=== PATIENT | male | born 1950 | race Caucasian/White ===

== ENCOUNTER 2017-07-28 11:57 | Emergency (ER) | payer MEDICARE, MEDICAID ==
[~2017-07-28] VITALS: Ht 170.2 cm; Wt 80.0 kg
[2017-07-28] MEDS ORDERED: iohexol 350MG/ML 100ml bottle IV ONE (12:08)
[2017-07-28 12:20] LABS: BASOPHILS % (AUTO) 0.6 % (0-1); EOSINOPHILS # (AUTO) 0.2 X10'3 (0-0.9); EOSINOPHILS % (AUTO) 2.6 % (0-6); HEMATOCRIT 45.2 % (42.0-52.0); HEMOGLOBIN 15.1 g/dl (14.0-17.9); LYMPHOCYTES # (AUTO) 2.1 X10'3 (1.1-4.8); LYMPHOCYTES % (AUTO) 33.2 % (21-51); MEAN CORPUSCULAR HGB CONC 33.5 % (33.0-36.5); MEAN CORPUSCULAR VOLUME 86.4 FL (78-98); MEAN PLATELET VOLUME 9.3 FL (7.4-10.4); MONOCYTES # (AUTO) 0.5 X10'3 (0-0.9); MONOCYTES % (AUTO) 8.5 % (2-12); NEUTROPHILS # (AUTO) 3.5 X10'3 (1.8-7.7); NEUTROPHILS % (AUTO) 55.1 % (42-75); PLATELET COUNT 144 X10'3 (140-440); RED BLOOD COUNT 5.23 X10'6 (4.70-6.10); RED CELL DISTRIBUTION WIDTH 13.5 % (11.5-14.5); WHITE BLOOD COUNT 6.4 X10'3 (4.5-11.0)
[2017-07-28 12:29] LABS: PARTIAL THROMBOPLASTIN TIME 23 SECONDS (22-32); PROTHROMBIN TIME 10.6 SECONDS (9.0-12.0)
[2017-07-28 12:37] LABS: ALANINE AMINOTRANSFERASE 35 U/L (12-78); ALBUMIN 4.1 G/DL (3.4-5.0); ALBUMIN/GLOBULIN RATIO 1.4 (1.1-1.5); ALKALINE PHOSPHATASE 84 IU/L (46-116); ANION GAP 11 (8-16); ASPARTATE AMINO TRANSFERASE 19 U/L (10-37); BILIRUBIN,TOTAL 1.2 MG/DL (0.1-1.0); BLOOD UREA NITROGEN 19 MG/DL (7-18); CALCIUM 8.9 MG/DL (8.5-10.1); CHLORIDE 104 MMOL/L (99-107); CREATININE 1.46 MG/DL (0.60-1.10); GLUCOSE 143 MG/DL (70-104); POTASSIUM 3.6 MMOL/L (3.5-5.1); SODIUM 141 MMOL/L (135-145); TOTAL CARBON DIOXIDE 26.5 MMOL/L (24-32); eGFR 48 ML/MIN
[2017-07-28] MEDS ORDERED: morphine 5 MG/ML injection IV ONE (12:45)
[2017-07-28] MEDS ORDERED: ondansetron/PF 4mg/2ml inj IV ONE (12:45)
[2017-07-28] MEDS ORDERED: morphine sulfate 8 MG/ML SYRINGE IV ONE (12:50)
[2017-07-28] MEDS ORDERED: HYDROcodone/acetaminophen 10/325mg tab PO ONE (13:20)
[2017-07-28] MEDS ORDERED: tetanus & diphtheria toxoid (Td) vaccine 0.5ml IMVAC ONE (13:25)
[2017-07-28] MEDS ORDERED: HYDR-565 PO (13:41)
[2017-07-28] MEDS ORDERED: TETanus/Pertussis (Acell)/Diphther VAC/PF (Tdap-Adult) 0.5ml syringe IMVAC ONE (14:00)
[2017-07-28 18:54] VITALS: BP 144/78
== END 2017-07-28 16:00 | disposition home or self-care (01) ==
LOC: ER 11:58
DX: S71.101A Unspecified open wound, right thigh, initial encounter (principal); I10 Essential (primary) hypertension; W32.0XXA Accidental handgun discharge, initial encounter; Y93.89 Activity, other specified; Y92.89 Other specified places as the place of occurrence of the external cause; Y99.8 Other external cause status
CPT/HCPCS: 36415; 73706; 80053; 82948; 85025; 85610; 85730; 86885; 86900; 86901; 90471; 90715; 96374; 96375; 99285; A6449; J2270; J2405; J7030; Q9967

== ENCOUNTER 2025-07-03 16:13 | Emergency (ER) | payer MEDICARE, MEDICAID ==
[~2025-07-03] VITALS: Ht 170.2 cm; Wt 69.5 kg
[~2025-07-03 16:13] MED LIST: ATOR20TA66 PO; NITR0.4T51 SL; NOR5T PO; PANT40TA54 PO
--- NOTE | 2025-07-03 16:36 | ELECTROCARDIOGRAPH REPORT ---
[facility] Test Date: 2025-07-03 Test Time: 16:35:24 Pat Name: TWAN ARREGUIN Department: EMERGENCY ROOM Room: Gender: M Information Delivery Analyst: SANDRA : 1950 Requested By: NADIA MORALEZ Order Number: [id number] Reading MD: Dr. DEE Beltran Measurements Intervals [place] Rate: 55 P: 9 CA: 228 QRS: 35 QRSD: 100 T: 209 QT: 448 QTc: 429 Interpretive Statements Sinus bradycardia Prolonged CA interval Probable left atrial enlargement LVH with secondary repolarization abnormality Anterior Q waves, possibly due to LVH Baseline wander in lead(s) V3 Electronically Signed On 07-04-2025 17:33:[address] DEE Beltran Please click the below link to view image of tracing.
[2025-07-03 16:58] LABS: MEAN PLATELET VOLUME 9.7 FL (7.4-10.4); RED CELL DISTRIBUTION WIDTH 13.1 % (11.5-14.5)
--- NOTE | 2025-07-03 17:02 | RADIOLOGY REPORT ---
EXAM: DI CHEST,SINGLE VIEW HISTORY: CP COMPARISON: DI CHEST,SINGLE VIEW on DOS: 05/09/25 TECHNIQUE: Portable AP view of the chest was performed. FINDINGS: No pneumothorax, consolidative infiltrates, or pulmonary edema. There is mild relative elevation of the right hemidiaphragm, stable. The heart is not enlarged. The aortic arch is calcific. There are degenerative changes and scoliosis of the thoracic spine. IMPRESSION: No acute intrathoracic process.
[2025-07-03 17:16] LABS: CREATININE 1.32 MG/DL (0.60-1.10); PRO BRAIN NATRIURETIC PEPTIDE 627 PG/ML (0-450); TOTAL CARBON DIOXIDE 30.5 MMOL/L (24-32); eCRCL 45 ML/MIN; eGFR 53 ML/MIN
--- NOTE | 2025-07-03 18:58 | Physician Documentation ---
History of Present Illness ~ Chief Complaint: Hypertension Stated Complaint: HIGH BP Time Seen by MD: 18:57 Mode of Arrival: POV HPI Patient presents to the emergency room with chief complaint of elevated blood pressures. He admits that he would not take his blood pressure medicine today. He was admitted here two months ago and started on amlodipine. He states he has had refills and has a primary care. He states he has not been taking his blood pressures at home was unsure what they has been. That has prompted today by his friend to take his blood pressure. Medication Reconciliation Allergies: Coded Allergies: No Known Allergies (Unverified , 07/03/25) Scheduled Amlodipine Besylate (Amlodipine Besylate), 10 MG PO DAILY Atorvastatin Calcium (Atorvastatin Calcium), 40 MG PO DAILY Pantoprazole Sodium (Pantoprazole Sodium), 40 MG PO BKF Scheduled PRN Nitroglycerin SL* (Nitrostat SL*), 0.4 MG SL Q5MIN PRN for chest pain Past Medical History Past Medical History: Hypertension, COPD, Hypothyroidism Past Surgical History: noncontributory Patient History: FH: heart attack Drug Use: none Lives In: Home Review of Systems ROS All review of systems negative except as per HPI Physical Exam Vital Signs: Temperature: 97.8, Source: Temporal, Heart Rate: 54, Respiratory Rate: 16, BP: 201/86, Pulse Oximetry: 100, Weight: 69.500 Oxygen Flow Rate: 0 Physical Exam General: Patient is awake, alert, oriented x4 in no acute distress and well appearing.~ Head: Normocephalic and atraumatic. Eyes: Conjunctival normal. EOMI. PERRL. ENT: Mucous membranes moist. Neck: Supple, trachea is midline. Chest: Clear to auscultation bilaterally without rales, rhonchi, or wheezes. T here is no accessory muscle use or retractions. Cardiac: RRR without murmurs, gallops, or rubs. Progress Results/Orders Results/Orders Vital Signs 07/03/25 07/03/25 07/03/25 16:27 17:12 18:05 Temp 98.7 97.8 Pulse 58 54 Resp 12 16 16 B/P (MAP) 190/81 201/86 (124) Pulse Ox 99 100 O2 Flow Rate 0 0 Laboratory Tests Test 07/03/25 16:45 07/03/25 18:36 White Blood Count 7.0 Red Blood Count 4.84 Hemoglobin 14.1 Hematocrit 41.8 L Mean Corpuscular Volume 86.5 Mean Corpuscular Hemoglobin 29.2 Mean Corpuscular Hemoglobin Concent 33.8 Red Cell Distribution Width 13.1 Platelet Count 149 Mean Platelet Volume 9.7 Neutrophils (%) (Auto) 65.5 Lymphocytes (%) (Auto) 23.8 Monocytes (%) (Auto) 8.0 Eosinophils (%) (Auto) 1.7 Basophils (%) (Auto) 1.0 Neutrophils # (Auto) 4.6 Lymphocytes # (Auto) 1.7 Monocytes # (Auto) 0.6 Eosinophils # (Auto) 0.1 Basophils # (Auto) 0.1 CBC Comment Sodium Level 143 Potassium Level 3.7 Chloride Level 108 H Carbon Dioxide Level 30.5 Anion Gap 5 L Blood Urea Nitrogen 20 H Creatinine 1.32 H Estimated GFR/1.73 m2 53 BUN/Creatinine Ratio 15.2 Glucose Level 110 H Calcium Level 8.4 L Troponin I High Sensitivity 29 31 Pro-B-Type Natriuretic Peptide 627 H Albumin 4.1 Chemistry Comments Troponin I High Sens Percent Delta 6 Troponin I Hi Sens Absolute Change 2 Medical Decision Making Additional information obtaine: old records Findings Patient presented to the emergency room with elevated blood pressures. Concern for possible hypertensive emergency therefore labs ordered which were reassuring compared to previous. He admits that he would not take his blood pressure medications today. We will give his blood pressure medication here with instructions to start blood pressure log and to follow up with his doctor. Differential Dx:Considerations: Include CHF, Include HTN, essential, Include HTN, accelerated, Include HTN, malignant, Include HTN, encephalopathy, Include m edical noncompliance, Include medication withdrawal, Include pulmonary edema, Include renal failure, Include -induced, Include other Departure Disposition: 01 HOME / SELF CARE / HOMELESS Impression: Primary Impression: Uncontrolled hypertension Condition: Stable Discharge Instructions: Hypertension, Adult Additional Instructions: Begin blood pressure log seek and bring this to your primary care doctor as you will likely need additional blood pressure medications. Referrals: NO PRIMARY CARE PROVIDER (PCP) Signature Scribe Signature: No scribe Attestation: The note accurately reflects work and decisions made by me.Jalil Wallis MD 07/03/25 19:14 JALIL WALLIS MD Jul 03, 2025 18:58
[2025-07-03 19:26] VITALS: BP 195/72; PULSE 65; RESP 16; TEMP 97.8; O2SAT 98
== END 2025-07-03 19:28 | disposition home or self-care (01) ==
LOC: ER 16:13
DX: I10 Essential (primary) hypertension (principal); E03.9 Hypothyroidism, unspecified; J44.9 Chronic obstructive pulmonary disease, unspecified; Z79.899 Other long term (current) drug therapy
CPT/HCPCS: 36415; 71045; 80048; 83880; 84484; 85025; 93005; 99285